=== PATIENT | female | born 1985 | race Hispanic/Latino ===

== ENCOUNTER 2022-06-11 12:16 | Outpatient (CLI) | payer BC, OTHER | END 2022-06-11 12:17 | disposition home or self-care (01) | LOC: BICULT 12:16 | PROVIDERS: ATTEND Student in an Organized Health Care Education/Training Program | DX: R22.31 Localized swelling, mass and lump, right upper limb (principal); I82.621 Acute embolism and thrombosis of deep veins of right upper extremity ==